=== PATIENT | female | born 1975 | race Asian ===

== ENCOUNTER 2018-09-02 21:44 | Emergency (ER) | payer OTHER ==
[~2018-09-02] VITALS: Ht 160 cm; Wt 72.6 kg
--- NOTE | 2018-09-02 21:44 | NUR ---
[facility] HOME FOR ALLERGIC REACTION UNKNOWN SOURCE X 2MOS, TAKING ZYRTEC AND BENADRYL X30 MIN [place] C[employer]TER WITH REDNESS/THROAT SCRATCHING X1 DAY. PT IS TACHYCARDIC BUT OTHERWISE VSS NO AUCTE DISTRESS NOTED AT THIS TIME. PT IS ALERT AND ORIENTED X4 ABLE TO MAKE NEEDS KNOWN. WILL CONTINUE TO MONITOR FOR ANY CHANGES DURING THE SHIFT.
--- NOTE | 2018-09-02 21:45 | NUR ---
ER MD KAPADIA AT BEDSIDE
[2018-09-02] MEDS ORDERED: methylPREDNISolone SOD SUCC 125 MG/2ML VIAL ONE (22:26)
[2018-09-02] MEDS ORDERED: FAMOTIDINE (20 MG) 20 MG TABLET ONE (22:26)
[2018-09-02] MEDS ORDERED: diphenhydrAMINE HCL 25 MG CAPSULE ONE (22:26)
[2018-09-02] MEDS: diphenhydrAMINE HCL 25 MG CAPSULE PO ONE (22:36)
[2018-09-02] MEDS: FAMOTIDINE (20 MG) 20 MG TABLET PO ONE (22:36)
[2018-09-02] MEDS: methylPREDNISolone SOD SUCC 125 MG/2ML VIAL IV ONE (22:36)
[2018-09-02] MEDS: IV NS 0.9% 1,000 ML BAG IV ONE (22:37)
[2018-09-02 23:22] VITALS: BP 131/60
== END 2018-09-02 23:23 | disposition home or self-care (01) ==
LOC: ER 21:49
DX: L50.0 Allergic urticaria (principal); R06.2 Wheezing
CPT/HCPCS: 96374; 99284; A4606; J2930; J7030; Q0163; Z7610